=== PATIENT | female | born 1975 | race Caucasian/White ===

== ENCOUNTER → 2017-01-22 | Outpatient (CLI) | payer BC ==
[~2017-01-22] MED LIST: Iopamidol 755 MG/ML 500 ML Multipack Bottle IVPUSH STA
--- NOTE | 2017-01-22 13:18 | CT ---
CT of the abdomen and pelvis with and without contrast. HISTORY: Pain TECHNIQUE: Axial CT images were obtained of the abdomen and pelvis before and following administrati on of 100 mL of Isovue-370 in the right antecubital fossa without complication. Coronal and sagittal reconstructions obtained. FINDINGS: The lung bases are clear, no pleural effusion. There is a tiny hepatic cyst along the gallbladder fossa. Cholecystectomy clips are noted. The splee n, adrenal glands, and pancreas appear normal. There is likely a tiny hiatal hernia. No bulky retrop eritoneal lymphadenopathy or abdominal ascites. The kidneys enhance and function symmetrically without evidence of obstructive uropathy. The large and small bowel are normal caliber without evidence of obstruction. No focal pericolonic i nflammation or stranding. The appendix appears normal. No pelvic lymphadenopathy or free pelvic flui d. The uterus and ovaries appear grossly unremarkable. The urinary bladder is mostly decompressed. No suspicious osseous abnormalities identified. IMPRESSION: 1. No acute findings demonstrated within the abdomen or pelvis. 2. Cholecystectomy.
== END ==
LOC: MW.DI 09:02
PROVIDERS: ATTEND Family Medicine
DX: R10.10 Upper abdominal pain, unspecified (principal); R10.2 Pelvic and perineal pain; R74.8 Abnormal levels of other serum enzymes; Z87.19 Personal history of other diseases of the digestive system; Z90.49 Acquired absence of other specified parts of digestive tract
CPT/HCPCS: 74178; Q9967

== ENCOUNTER 2017-04-08 14:34 | Emergency (ER) | payer BC ==
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
[2017-04-08] MEDS ORDERED: Ketorolac 60 MG/2 ML SDV IM ONE (15:36)
[2017-04-08 18:28] VITALS: BP 114/66
--- NOTE | 2017-04-09 13:50 | CR ---
EXAM DATE: 04/08/17 PATIENT'S AGE: 41 Patient: ZINA ESTRELLA Facility: [place], [place] Site . Site : [id number] Study: XRay Chest Left [id number] cxr/ribs-04/08/2017 3:20:59 PM Ordering Physician: Doctor Hylton Final Report: INDICATION: Left-sided chest and rib pain. Technique: PA chest and 2 views of the left ribs. Findings: The heart and mediastinum are normal size. The pulmonary vessels are normal. The lungs are clear and fully expanded. No acute left rib fracture or other left rib abnormality. Impression: Normal chest and left ribs. Dictated by Amos Madrid MD @ Apr 08 2017 3:52PM (Electronic Signature) Report Signed by Proxy. [facility]PITALCorby
== END 2017-04-08 16:06 | disposition home or self-care (01) ==
LOC: MW.ED 14:34
DX: R07.81 Pleurodynia (principal); Z88.5 Allergy status to narcotic agent
CPT/HCPCS: 71101-26-LT; 71101-LT; 99283

== ENCOUNTER 2021-05-28 17:47 | Observation (INO) | payer BC ==
[2021-05-28] MEDS ORDERED: Sodium Chloride 0.9% 2.5 ML Syringe FLUSH PRN (19:22)
[2021-05-28] MEDS ORDERED: Sodium Chloride 0.9% 10 ML Syringe FLUSH PRN (19:22)
[2021-05-28] MEDS ORDERED: Nitroglycerin 0.4 MG Tab.SL SL ONE (19:23)
[2021-05-28] MEDS ORDERED: Aspirin 325 MG Tab PO ONE (19:23)
--- NOTE | 2021-05-28 20:13 | CR ---
INDICATION: Chest pain TECHNIQUE: Chest 1 view. COMPARISON: 08 April 2017 FINDINGS: Cardiovascular and mediastinum: Heart size and vasculature are normal in caliber and appearance. Mediastinum is within normal limits. Lungs and pleural space: Lungs are clear. No sign of infiltrate or mass. No sign of pleural effusion. No pneumothorax. Bones and soft tissues: No significant findings. IMPRESSION: Unremarkable chest. Dictated by Thomas Garsia MD @ 05/28/2021 8:12:09 PM (Electronically Signed)
[2021-05-28 20:18] LABS: BLOOD UREA NITROGEN,BUN 10 mg/dL (7.0-18.0); CARBON DIOXIDE,CO2 22.3 mmol/L (21.0-32.0); CHLORIDE,CL 104 mmol/L (98-107); GLUCOSE RANDOM 103 mg/dL (74-106); POTASSIUM,K 3.9 mmol/L (3.5-5.1); SODIUM,NA 138 mmol/L (136-145)
--- NOTE | 2021-05-28 21:01 | EDM.PDOC ---
ED HPI GENERAL MEDICAL PROBLEM - General Chief Complaint: Cardiovascular Problem Stated Complaint: CHEST PAIN, RAPID HEART RATE Time Seen by Provider: 05/28/21 19:08 Source of Information: Reports: Patient - History of Present Illness INITIAL COMMENTS - FREE TEXT/NARRATIVE: Patient presents complaining of chest pain and palpitations. For about 2 days patient has intermittent chest pressure. She has had intermittent heart rates where that goes up to 150 then down to the 90s up into the 130s then down into the 1 teens. No exacerbating or alleviating factors. No cough fevers infectious complaints. Patient denies any recent travel injury or cancer surgery. No unilateral leg swelling. Positive control and smoking. Moderate symptoms without exacerbating or alleviating factors. Patient has not had a stress test in the past - Related Data Allergies Allergy/AdvReac Type Severity Reaction Status Date / Time levofloxacin [From Levaquin] Allergy Rash Verified 05/28/21 19:00 morphine Allergy Vomiting Verified 05/28/21 19:00 suture Allergy Rash Verified 05/28/21 19:00 Home Meds: Home Meds ClonazePAM [KlonoPIN] 05/28/21 [History] norgestrel-ethinyl estradioL [Elinest-28 Tablet] 05/28/21 [History] Past Medical History - Past Health History Medical/Surgical History: Denies Medical/Surgical History HEENT History: Reports: None Cardiovascular History: Reports: None Other Cardiovascular History: 5 yr history of smoking, QUIT '2001 Respiratory History: Reports: None Gastrointestinal History: Reports: Other (See Below) Other Gastrointestinal History: Heartburn, hx: Right upper quadrant pain Genitourinary History: Reports: None 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: Musculoskeletal History: Reports: Other (See Below) Other Musculoskeletal History: hx: Fracturing finger Neurological History: Reports: Other (See Below) Other Neuro History: "sometimes sinus headaches" Psychiatric History: Reports: None Endocrine/Metabolic History: Reports: None Hematologic History: Reports: None Immunologic History: Reports: None Oncologic (Cancer) History: Reports: None Dermatologic History: Reports: None - Infectious Disease History Infectious Disease History: Reports: None - Past Surgical History Head Surgeries/Procedures: Reports: None HEENT Surgical History: Reports: None Cardiovascular Surgical History: Reports: None GI Surgical History: Reports: Cholecystectomy Female Surgical History: Reports: Section Other Female Surgeries/Procedures: 2 C-sections Endocrine Surgical History: Reports: None Musculoskeletal Surgical History: Reports: Other (See Below) Other Musculoskeletal Surgeries/Procedures:: 6 knee procedures, 5 arthroscopic, 1 Open knee surgery LEFT Dermatological Surgical History: Reports: None Social & Family History - Family History Family Medical History: No Pertinent Family History - Tobacco Use Tobacco Use Status *Q: Never Tobacco User Second Hand Smoke Exposure: No - Caffeine Use Caffeine Use: Reports: None - Recreational Drug Use Recreational Drug Use: No - Living Situation & Occupation Living situation: Reports: Occupation: Employed ED ROS GENERAL - Review of Systems Review Of Systems: Comprehensive ROS is negative, except as noted in HPI. ED EXAM, GENERAL - Physical Exam Exam: See Below Free Text/Narrative:: CONSTITUTIONAL: well appearing in no acute distress SKIN: Warm, dry, and intact without rash HENT: Normocephalic, atraumatic, PULMONARY: clear to ausculation bilaterally. No rales, rhonchi, wheezing CARDIOVASCULAR: regular rate, No murmur, rubs, or gallops GASTROINTESTINAL: soft, nondistended, nontender NEUROLOGIC: normal speech, II-XII intact. light touch/5/5 power equal and symmetric in upper and lower extremities without deficit MUSCULOSKELETAL: no gross deformities, atraumatic PSYCHIATRIC: normal mood and affect #1 Interpretation Time: 20:58 EKG Interpretation Comments: 6:50 PM. Rate 67. Very minor less than 1 mm J-point elevation in lead I, II and aVF with normal inflection points. No reciprocal changes. #2 Interpretation Time: 20:59 EKG Interpretation Comments: EKG at 8:27 PM. 68, normal sinus rhythm, possible DE depression versus very minor J-point elevation in lead I and lead II with normal inflection point and no reciprocal changes Course - Vital Signs Text/Narrative:: Differential diagnosis: ACS, D-dimer, pneumonia, pneumothorax, other Patient presents with chest discomfort. Patient with negative cardiac enzymes 2 days after onset of symptoms. Given the potential ACS story and commendation with an EKG that is not [place] normal patient be admitted for serial cardiac enzymes. Additionally the description of her heart rate could be consistent with A. fib RVR or other dysrhythmia. Patient be monitored during hospitalization and could be considered for outpatient Holter monitoring patient given aspirin and nitro and currently chest pain-free and doing well admitted in good condition stable Last Recorded V/S: Last Vital Signs Temp 36.6 C 05/28/21 18:54 Pulse 107 H 05/28/21 19:43 Resp 17 05/28/21 19:43 BP 118/78 05/28/21 19:43 Pulse Ox 97 05/28/21 19:43 - Orders/Labs/Meds Orders: Active Orders 24 hr Category Date Time Status Admission Status [Patient Status] [ADT] Stat ADT 05/28/21 20:51 Active Cardiac Monitoring [RC] . DIRECTED Care 05/28/21 19:22 Active Cardiac Monitoring [RC] . DIRECTED Care 05/28/21 20:51 Active EKG 12 Lead [EKG Documentation Completion] [RC] STAT Care 05/28/21 20:25 Active Pulse Oximetry [RC] ASDIRECTED Care 05/28/21 19:22 Active Sodium Chloride 0.9% [Saline Flush] Med 05/28/21 19:22 Active 10 ml FLUSH ASDIRECTED PRN Sodium Chloride 0.9% [Saline Flush] Med 05/28/21 19:22 Active 2.5 ml FLUSH ASDIRECTED PRN Saline Lock Insert [OM.PC] Stat Oth 05/28/21 19:22 Ordered Medication Orders Sodium Chloride (Sodium Chloride 0.9% 10 Ml Syringe) 10 ml FLUSH ASDIRECTED PRN PRN Reason: Keep Vein Open Last Admin: 05/28/21 19:38 Dose: 10 ml Documented by: JOSH Sodium Chloride (Sodium Chloride 0.9% 2.5 Ml Syringe) 2.5 ml FLUSH ASDIRECTED PRN PRN Reason: Keep Vein Open Last Admin: 05/28/21 19:39 Dose: 2.5 ml Documented by: JOSH Labs: Laboratory Tests 05/28/21 05/28/21 05/28/21 Range/Units 19:35 19:35 19:35 WBC 9.92 (4.0-11.0) K/uL RBC 4.76 (4.30-5.90) M/uL Hgb 14.6 (12.0-16.0) g/dL Hct 42.8 (36.0-46.0) % MCV 89.9 (80.0-98.0) fL MCH 30.7 (27.0-32.0) pg MCHC 34.1 (31.0-37.0) g/dL RDW Std Deviation 41.7 (28.0-62.0) fl RDW Coeff of Rashad 13 (11.0-15.0) % Plt Count 220 (150-400) K/uL MPV 11.10 (7.40-12.00) fL Neut % (Auto) 69.5 (48.0-80.0) % Lymph % (Auto) 21.0 (16.0-40.0) % Hunt % (Auto) 7.7 (0.0-15.0) % Eos % (Auto) 1.6 (0.0-7.0) % Baso % (Auto) 0.2 (0.0-1.5) % Neut # (Auto) 6.9 H (1.4-5.7) K/uL Lymph # (Auto) 2.1 (0.6-2.4) K/uL Hunt # (Auto) 0.8 (0.0-0.8) K/uL Eos # (Auto) 0.2 (0.0-0.7) K/uL Baso # (Auto) 0.0 (0.0-0.1) K/uL Nucleated RBC % 0.0 /100WBC Nucleated RBCs # 0 K/uL APTT 23.9 (18.6-31.3) SEC D-Dimer, Quantitative 0.40 (0.0-0.50) mg/L FEU Sodium 138 (136-145) mmol/L Potassium 3.9 (3.5-5.1) mmol/L Chloride 104 (98-107) mmol/L Carbon Dioxide 22.3 (21.0-32.0) mmol/L BUN 10 (7.0-18.0) mg/dL Creatinine 1.0 (0.6-1.0) mg/dL Est Cr Clr Drug Dosing 61.35 mL/min Estimated GFR (MDRD) 60.0 ml/min Glucose 103 (74-106) mg/dL Calcium 9.7 (8.5-10.1) mg/dL Total Bilirubin 0.5 (0.2-1.0) mg/dL AST 17 (15-37) IU/L ALT 23 (14-63) IU/L Alkaline Phosphatase 77 (46-116) U/L Troponin I < 0.050 (0.000-0.056) ng/mL Total Protein 7.4 (6.4-8.2) g/dL Albumin 4.2 (3.4-5.0) g/dL Globulin 3.2 (2.6-4.0) g/dL Albumin/Globulin Ratio 1.3 (0.9-1.6) TSH, Ultra Sensitive 1.56 (0.36-3.74) uIU/mL Meds: Medications Generic Name Dose Route Start Last Admin Trade Name Freq PRN Reason Stop Dose Admin Sodium Chloride 10 ml 05/28/21 19:22 05/28/21 19:38 Sodium Chloride 0.9% 10 Ml Syringe FLUSH 10 ml ASDIRECTED PRN Administration Keep Vein Open Sodium Chloride 2.5 ml 05/28/21 19:22 05/28/21 19:39 Sodium Chloride 0.9% 2.5 Ml Syringe FLUSH 2.5 ml ASDIRECTED PRN Administration Keep Vein Open Discontinued Medications Generic Name Dose Route Start Last Admin Trade Name Freq PRN Reason Stop Dose Admin Aspirin 325 mg 05/28/21 19:23 05/28/21 19:37 Aspirin 325 Mg Tab PO 05/28/21 19:24 325 mg ONETIME ONE Administration Nitroglycerin 0.4 mg 05/28/21 19:23 05/28/21 19:37 Nitroglycerin 0.4 Mg Tab.Sl SL 05/28/21 19:24 0.4 mg ONETIME ONE Administration Departure - Departure Time of Disposition: 21:00 Disposition: Refer to Observation Condition: Good Clinical Impression: Chest pain Referrals: PCP,None [Primary Care Provider] - Sepsis Event Note (ED) - Evaluation Sepsis Screening Result: No Definite Risk - Focused Exam Vital Signs: Vital Signs Temp Pulse Resp BP BP Pulse Ox 05/28/21 19:43 107 H 17 118/78 97 05/28/21 19:37 147/80 H 05/28/21 18:54 36.6 C 74 18 156/87 H 99 - My Orders Last 24 Hours: My Active Orders 05/28/21 19:22 Cardiac Monitoring [RC] . DIRECTED Pulse Oximetry [RC] ASDIRECTED Sodium Chloride 0.9% [Saline Flush] 10 ml FLUSH ASDIRECTED PRN Sodium Chloride 0.9% [Saline Flush] 2.5 ml FLUSH ASDIRECTED PRN Saline Lock Insert [OM.PC] Stat 05/28/21 20:25 EKG 12 Lead [EKG Documentation Completion] [RC] STAT 05/28/21 20:51 Admission Status [Patient Status] [ADT] Stat Cardiac Monitoring [RC] . DIRECTED - Assessment/Plan Last 24 Hours: My Active Orders 05/28/21 19:22 Cardiac Monitoring [RC] . DIRECTED Pulse Oximetry [RC] ASDIRECTED Sodium Chloride 0.9% [Saline Flush] 10 ml FLUSH ASDIRECTED PRN Sodium Chloride 0.9% [Saline Flush] 2.5 ml FLUSH ASDIRECTED PRN Saline Lock Insert [OM.PC] Stat 05/28/21 20:25 EKG 12 Lead [EKG Documentation Completion] [RC] STAT 05/28/21 20:51 Admission Status [Patient Status] [ADT] Stat Cardiac Monitoring [RC] . DIRECTED
--- NOTE | 2021-05-28 22:44 | PCM.HP.2 ---
H&P History of Present Illness - General Date of Service: 05/28/21 Admit Problem/Dx: Admission Diagnosis/Problem Admission Diagnosis/Problem Chest pain - History of Present Illness Initial Comments - Free Text/Narative: 45 yo female with pmh of panic attacks who presents with one day history of substernal chest pain, with associated symptoms of palpitations. She has had palpitations in the past for wich she is prescribed clonazepam She reports the chest pain is new. She has an apple watch and reports episodes of HR in the 120s-140s. In the ER her HR has been 70s-100s. She denies any shortness of breath, fevers, or cough. - Related Data Allergies/Adverse Reactions: Allergies Allergy/AdvReac Type Severity Reaction Status Date / Time levofloxacin [From Levaquin] Allergy Rash Verified 05/28/21 19:00 morphine Allergy Vomiting Verified 05/28/21 19:00 suture Allergy Rash Verified 05/28/21 19:00 Home Medications: Home Meds ClonazePAM [KlonoPIN] 0.5 mg PO BID 05/28/21 [History] norgestrel-ethinyl estradioL [Elinest-28 Tablet] 05/28/21 [History] Omeprazole 40 mg PO ASDIRECTED PRN 05/29/21 [History] Past Medical History - Past Health History Medical/Surgical History: Denies Medical/Surgical History HEENT History: Reports: None Cardiovascular History: Reports: None Other Cardiovascular History: 5 yr history of smoking, QUIT '2001 Respiratory History: Reports: None Gastrointestinal History: Reports: Other (See Below) Other Gastrointestinal History: Heartburn, hx: Right upper quadrant pain Genitourinary History: Reports: None [employer] History: Reports: Musculoskeletal History: Reports: Other (See Below) Other Musculoskeletal History: hx: Fracturing finger Neurological History: Reports: Other (See Below) Other Neuro History: "sometimes sinus headaches" Psychiatric History: Reports: None Endocrine/Metabolic History: Reports: None Hematologic History: Reports: None Immunologic History: Reports: None Oncologic (Cancer) History: Reports: None Dermatologic History: Reports: None - Infectious Disease History Infectious Disease History: Reports: None - Past Surgical History Head Surgeries/Procedures: Reports: None HEENT Surgical History: Reports: None Cardiovascular Surgical History: Reports: None GI Surgical History: Reports: Cholecystectomy Female Surgical History: Reports: Section Other Female Surgeries/Procedures: 2 C-sections Endocrine Surgical History: Reports: None Musculoskeletal Surgical History: Reports: Other (See Below) Other Musculoskeletal Surgeries/Procedures:: 6 knee procedures, 5 arthroscopic, 1 Open knee surgery LEFT Dermatological Surgical History: Reports: None Social & Family History - Family History Family Medical History: No Pertinent Family History - Tobacco Use Tobacco Use Status *Q: Never Tobacco User Second Hand Smoke Exposure: No - Caffeine Use Caffeine Use: Reports: None - Recreational Drug Use Recreational Drug Use: No - Living Situation & Occupation Living situation: Reports: Occupation: Employed H&P Review of Systems - Review of Systems: Review Of Systems: Comprehensive ROS is negative, except as noted in HPI. Exam - Exam Exam: See Below - Vital Signs Vital Signs: Last Vital Signs Temp 36.6 C 05/28/21 18:54 Pulse 107 H 05/28/21 19:43 Resp 17 05/28/21 19:43 BP 118/78 05/28/21 19:43 Pulse Ox 97 05/28/21 19:43 Weight: 68.039 kg - Exam General: Alert, Oriented HEENT: Mucosa Moist & Alexis Neck: Supple Lungs: Clear to Auscultation, Normal Respiratory Effort Cardiovascular: Regular Rate, Regular Rhythm Extremities: Normal Inspection, Non-Tender, No Pedal Edema Skin: Warm, Dry, Intact - Patient Data Lab Results Last 24 hrs: Laboratory Results - last 24 hr 05/28/21 05/28/21 05/28/21 Range/Units 19:35 19:35 19:35 WBC 9.92 (4.0-11.0) K/uL RBC 4.76 (4.30-5.90) M/uL Hgb 14.6 (12.0-16.0) g/dL Hct 42.8 (36.0-46.0) % MCV 89.9 (80.0-98.0) fL MCH 30.7 (27.0-32.0) pg MCHC 34.1 (31.0-37.0) g/dL RDW Std Deviation 41.7 (28.0-62.0) fl RDW Coeff of Rashad 13 (11.0-15.0) % Plt Count 220 (150-400) K/uL MPV 11.10 (7.40-12.00) fL Neut % (Auto) 69.5 (48.0-80.0) % Lymph % (Auto) 21.0 (16.0-40.0) % Blackford % (Auto) 7.7 (0.0-15.0) % Eos % (Auto) 1.6 (0.0-7.0) % Baso % (Auto) 0.2 (0.0-1.5) % Neut # (Auto) 6.9 H (1.4-5.7) K/uL Lymph # (Auto) 2.1 (0.6-2.4) K/uL Blackford # (Auto) 0.8 (0.0-0.8) K/uL Eos # (Auto) 0.2 (0.0-0.7) K/uL Baso # (Auto) 0.0 (0.0-0.1) K/uL Nucleated RBC % 0.0 /100WBC Nucleated RBCs # 0 K/uL APTT 23.9 (18.6-31.3) SEC D-Dimer, Quantitative 0.40 (0.0-0.50) mg/L FEU Sodium 138 (136-145) mmol/L Potassium 3.9 (3.5-5.1) mmol/L Chloride 104 (98-107) mmol/L Carbon Dioxide 22.3 (21.0-32.0) mmol/L BUN 10 (7.0-18.0) mg/dL Creatinine 1.0 (0.6-1.0) mg/dL Est Cr Clr Drug Dosing 61.35 mL/min Estimated GFR (MDRD) 60.0 ml/min Glucose 103 (74-106) mg/dL Calcium 9.7 (8.5-10.1) mg/dL Total Bilirubin 0.5 (0.2-1.0) mg/dL AST 17 (15-37) IU/L ALT 23 (14-63) IU/L Alkaline Phosphatase 77 (46-116) U/L Troponin I < 0.050 (0.000-0.056) ng/mL Total Protein 7.4 (6.4-8.2) g/dL Albumin 4.2 (3.4-5.0) g/dL Globulin 3.2 (2.6-4.0) g/dL Albumin/Globulin Ratio 1.3 (0.9-1.6) TSH, Ultra Sensitive 1.56 (0.36-3.74) uIU/mL SARS-CoV-2 RNA (SHANICE) (NEGATIVE) 05/28/21 Range/Units 21:05 WBC (4.0-11.0) K/uL RBC (4.30-5.90) M/uL Hgb (12.0-16.0) g/dL Hct (36.0-46.0) % MCV (80.0-98.0) fL MCH (27.0-32.0) pg MCHC (31.0-37.0) g/dL RDW Std Deviation (28.0-62.0) fl RDW Coeff of Rashad (11.0-15.0) % Plt Count (150-400) K/uL MPV (7.40-12.00) fL Neut % (Auto) (48.0-80.0) % Lymph % (Auto) (16.0-40.0) % Blackford % (Auto) (0.0-15.0) % Eos % (Auto) (0.0-7.0) % Baso % (Auto) (0.0-1.5) % Neut # (Auto) (1.4-5.7) K/uL Lymph # (Auto) (0.6-2.4) K/uL Blackford # (Auto) (0.0-0.8) K/uL Eos # (Auto) (0.0-0.7) K/uL Baso # (Auto) (0.0-0.1) K/uL Nucleated RBC % /100WBC Nucleated RBCs # K/uL APTT (18.6-31.3) SEC D-Dimer, Quantitative (0.0-0.50) mg/L FEU Sodium (136-145) mmol/L Potassium (3.5-5.1) mmol/L Chloride (98-107) mmol/L Carbon Dioxide (21.0-32.0) mmol/L BUN (7.0-18.0) mg/dL Creatinine (0.6-1.0) mg/dL Est Cr Clr Drug Dosing mL/min Estimated GFR (MDRD) ml/min Glucose (74-106) mg/dL Calcium (8.5-10.1) mg/dL Total Bilirubin (0.2-1.0) mg/dL AST (15-37) IU/L ALT (14-63) IU/L Alkaline Phosphatase (46-116) U/L Troponin I (0.000-0.056) ng/mL Total Protein (6.4-8.2) g/dL Albumin (3.4-5.0) g/dL Globulin (2.6-4.0) g/dL Albumin/Globulin Ratio (0.9-1.6) TSH, Ultra Sensitive (0.36-3.74) uIU/mL SARS-CoV-2 RNA (SHANICE) NEGATIVE (NEGATIVE) Result Diagrams: 05/28/21 19:35 05/28/21 19:35 Sepsis Event Note - Evaluation Sepsis Screening Result: No Definite Risk - Focused Exam Vital Signs: Vital Signs Temp Pulse Resp BP BP Pulse Ox 05/28/21 19:43 107 H 17 118/78 97 05/28/21 19:37 147/80 H 05/28/21 18:54 36.6 C 74 18 156/87 H 99 Problem List Initiated/Reviewed/Updated: Yes Orders Last 24hrs: Active Orders 24 hr Category Date Time Status Admission Status [Patient Status] [ADT] Stat ADT 05/28/21 20:51 Active Antiembolic Devices [RC] PER UNIT ROUTINE Care 05/28/21 22:41 Ordered Cardiac Monitoring [RC] . DIRECTED Care 05/28/21 19:22 Active Cardiac Monitoring [RC] . DIRECTED Care 05/28/21 20:51 Active Oxygen Therapy [RC] PRN Care 05/28/21 22:41 Ordered Pulse Oximetry [RC] ASDIRECTED Care 05/28/21 19:22 Active Up ad Gricelda [RC] ASDIRECTED Care 05/28/21 22:41 Ordered VTE/DVT Education [RC] PER UNIT ROUTINE Care 05/28/21 22:41 Ordered Vital Signs [RC] Q4H Care 05/28/21 22:41 Ordered Regular Diet [DIET] Diet 05/28/21 Breakfast Ordered TROPONIN I [CHEM] Q6H Lab 05/29/21 01:00 Ordered TROPONIN I [CHEM] Q6H Lab 05/29/21 07:00 Ordered Sodium Chloride 0.9% [Saline Flush] Med 05/28/21 19:22 Active 10 ml FLUSH ASDIRECTED PRN Sodium Chloride 0.9% [Saline Flush] Med 05/28/21 19:22 Active 2.5 ml FLUSH ASDIRECTED PRN Saline Lock Insert [OM.PC] Stat Oth 05/28/21 19:22 Ordered Sequential Compression Device [OM.PC] Per Unit Routine Oth 05/28/21 22:41 Ordered Resuscitation Status Routine Resus Stat 05/28/21 22:41 Ordered Medication Orders Sodium Chloride (Sodium Chloride 0.9% 10 Ml Syringe) 10 ml FLUSH ASDIRECTED PRN PRN Reason: Keep Vein Open Last Admin: 05/28/21 19:38 Dose: 10 ml Documented by: JOSH Sodium Chloride (Sodium Chloride 0.9% 2.5 Ml Syringe) 2.5 ml FLUSH ASDIRECTED PRN PRN Reason: Keep Vein Open Last Admin: 05/28/21 19:39 Dose: 2.5 ml Documented by: JOSH Assessment/Plan Comment:: 45 yo female admitted for chest pain. She ruled out for acute coronary syndrome with serial negative cardiac enzymes and EKG. She had no events on telemetry and she is feeling much better this morning. She is to be discharged home to follow up with Dr. Lazar.
[2021-05-29 10:20] VITALS: BP 115/83; PULSE 77
== END 2021-05-29 12:45 | disposition home or self-care (01) ==
LOC: MW.ED 17:47 → MW.MS 20:51
PROVIDERS: ADMIT Internal Medicine; ATTEND Internal Medicine
DX: R07.9 Chest pain, unspecified (principal); Z88.5 Allergy status to narcotic agent; Z88.8 Allergy status to other drugs, medicaments and biological substances; Z79.899 Other long term (current) drug therapy; Z20.822 Contact with and (suspected) exposure to COVID-19
CPT/HCPCS: 36415; 71045; 80053; 84443; 84484; 85025; 85379; 85730; 87635; 93005; A9270; G0378; 99285-25; U0002

== ENCOUNTER → 2024-01-21 | Day surgery (SDC) | payer BC ==
[~2024-01-21] MED LIST changes: +Albuterol 0.083% 2.5 MG/3 ML Neb Soln NEB PRN; +Dexamethasone 4 MG/ML 5 ML MDV ONE; +HYDROmorphone 1 MG/ML Syringe IVPUSH PRN; -Iopamidol 755 MG/ML 500 ML Multipack Bottle IVPUSH STA; +Ketorolac 30 MG/ML SDV ONE; +Metoclopramide 10 MG/2 ML SDV IVPUSH PRN; +Naloxone 0.4 MG/ML SDV IVPUSH PRN; +Ondansetron 4 MG/2 ML SDV IVPUSH PRN; +Ondansetron 4 MG/2 ML SDV ONE; +Sodium Chloride 0.9% 10 ML Syringe FLUSH PRN; +Sodium Chloride 0.9% 2.5 ML Syringe FLUSH PRN; +Sodium Chloride 0.9% 20 ML SDV IV PRN; +Water For Injection, Sterile 20 ML ONE; +dexmedeTOMIDine HCl 200 MCG/2 ML SDV ONE; +droPERidol 5 MG/2 ML SDV IVPUSH PRN; +fentaNYL 100 MCG/2 ML SDV ONE; +fentaNYL 50 MCG/ML SDV IVPUSH PRN; +propofoL 50 ML ONE
[2024-01-21] MEDS: Lactated Ringers 1,000 ML IV SCH (09:50)
[2024-01-21 10:36] VITALS: BP 0/0; PULSE 0
== END ==
LOC: MW.SDS 06:27
PROVIDERS: ATTEND Obstetrics & Gynecology
DX: N92.0 Excessive and frequent menstruation with regular cycle (principal); F41.9 Anxiety disorder, unspecified; F17.210 Nicotine dependence, cigarettes, uncomplicated; F17.290 Nicotine dependence, other tobacco product, uncomplicated; Z79.899 Other long term (current) drug therapy
CPT/HCPCS: 58563; C1729; J0131; J1100; J1885; J2405; J2704; J3010; J7120; 00952; J3490